=== PATIENT | female | born 1965 | race Caucasian/White ===

== ENCOUNTER 2023-11-28 07:58 | Emergency (ER) | payer OTHER ==
[2023-11-28] MEDS ORDERED: Ibuprofen 800 MG TAB ONE (09:34)
[2023-11-28] MEDS ORDERED: Oxymetazoline HCl 0.05% (30 ML BOT) ONE (09:34)
[2023-11-28 09:40] LABS: Influenza A by NAA DETECTED (NotDetected); Influenza B by NAA Not Detected (NotDetected); SARS-CoV-2 NAA Rapid Test Not Detected (NotDetected)
== END 2023-11-28 10:51 | disposition home or self-care (01) ==
LOC: ERS 07:58
DX: J10.1 Influenza due to other identified influenza virus with other respiratory manifestations (principal); K21.9 Gastro-esophageal reflux disease without esophagitis; I10 Essential (primary) hypertension; Z79.899 Other long term (current) drug therapy; Z87.891 Personal history of nicotine dependence
CPT/HCPCS: 99284